=== PATIENT | female | born 1940 | race American Indian/Alaskan Native ===

== ENCOUNTER 2016-07-02 19:35 | Inpatient (IN) | payer MEDICARE ==
--- NOTE | 2016-07-02 20:34 | Cat Scan Report ---
FINAL REPORT EXAM: CT HEAD/BRAIN WO CON HISTORY: neuro deficits > 6hrs or sx present upon awakening TECHNIQUE: CT head without contrast PRIORS: None. FINDINGS: No acute intra-axial or extra-axial hemorrhage is identified. There is no evidence of midline shift or mass effect. There is generalized prominence of ventricles and sulci consistent with mild generalized atrophy. Hanson-white matter differentiation is intact. No acute parenchymal abnormalities seen. There are patchy and confluent hypodensities within the supratentorial white matter. Bony calvarium is grossly intact. Visualized portions of the mastoids and paranasal sinuses are unremarkable. IMPRESSION: Chronic small vessel white matter ischemic change Mild generalized atrophy
--- NOTE | 2016-07-02 20:41 | Admit Criteria Form ---
Admission Criteria Documentation: STROKE: ISCHEMIC Clinical Indications for Admission to Inpatient Care (Place 'X' for any and all applicable criteria): Admission is indicated for ANY ONE of the following(1)(2)(3)(4): [ X]I. Acute stroke Extended stay beyond goal length of stay may be needed for(1)(2) [ ]a) Major deficit or clinical deterioration [ ]b) Hospital-acquired infection (eg, urinary tract infection, pneumonia) [ ]c) Embolic cause of stroke [ ]d) Venous thromboembolism(9) [ ]e) Seizures [ ]f) Bleeding (eg, cerebral) [ ]g) Increased intracranial pressure [ ]h) Comorbidities [ ]i) Surgical intervention The original [email or web address] content created by [email or web address] has been revised. The portions of the content which have been revised are identified through the use of italic text or in bold, and [facility] has neither reviewed nor approved the modified material. All other unmodified content is copyright [facility]. Please see references footnoted in the original [facility] edition 2016 Admission Criteria Met: Yes
--- NOTE | 2016-07-02 21:07 | Emergency Department Report ---
ED Neuro Deficit HPI - General Chief Complaint: Neuro Symptoms/Deficit Stated Complaint: LEG PAIN.LT SIDE WEAKNESS Time Seen by Provider: 07/02/16 20:11 Source: EMS Mode of arrival: Stretcher Limitations: Altered Mental Status, Physical Limitation - History of Present Illness Initial Comments: 75-year-old female presents to the emergency department via EMS for possible strokelike symptoms. Per report, the family stated that the patient has been having left-sided facial droop intermittently for the past 2 days. Patient has a history of stroke with residual left-sided weakness. Patient is bedbound at baseline. Patient denies symptoms. There are no other complaints. -: Gradual, days(s) (2) Location: left face, dysarthria Presenting Symptoms: Present: Facial Droop/Numbness History of same: Yes Place: home Severity: moderate Improves With: none Worsens With: none On Anticoagulants: No Context: gradual onset Associated Symptoms: denies other symptoms Treatments Prior to Arrival: none - Related Data Home Medications: Home Medications Medication Instructions Recorded Confirmed Last Taken Cyanocobalamin [Vitamin B-12] 1,000 mcg IM QWEEK 04/30/16 07/02/16 04/26/16 Previous Rx's Medication Instructions Recorded Last Taken Type Warfarin Sodium [Coumadin] 3 mg PO QPM #30 tab 03/19/15 04/24/16 Rx Allergies/Adverse Reactions: Allergies Allergy/AdvReac Type Severity Reaction Status Date / Time Penicillins Allergy Swelling Verified 08/15/14 16:55 ED Review of Systems ROS: Stated complaint: LEG PAIN.LT SIDE WEAKNESS Other details as noted in HPI Comment: All other systems reviewed and negative Respiratory: denies: shortness of breath Cardiovascular: denies: chest pain Neurological: as per HPI ED Past Medical Hx - Past Medical History Previous Medical History?: Yes Hx Hypertension: Yes (1996 - no meds) Hx CVA: Yes (resid. L-side hemiplegia) Hx Diabetes: Yes (1996; not taking any meds in years) Hx GERD: Yes Additional medical history: FIBROIDS. OBESITY - Surgical History Past Surgical History?: Yes Hx Appendectomy: Yes (1996) Additional Surgical History: HYSTERECTOMY. D & C - Social History Smoking Status: Never Smoker - Medications Home Medications: Home Medications Medication Instructions Recorded Confirmed Last Taken Type Warfarin Sodium [Coumadin] 3 mg PO QPM #30 tab 03/19/15 07/02/16 04/24/16 Rx Cyanocobalamin [Vitamin B-12] 1,000 mcg IM QWEEK 04/30/16 07/02/16 04/26/16 History ED Neuro Physical Exam - General Limitations: Altered Mental Status, Physical Limitation General appearance: alert, in no apparent distress Suspected Stroke: Yes - Head Head exam: Present: atraumatic, normocephalic - Eye Eye exam: Present: normal appearance, PERRL, EOMI - ENT ENT exam: Present: normal exam, normal orophraynx, mucous membranes moist - Neck Neck exam: Present: normal inspection, full ROM. Absent: tenderness - Respiratory Respiratory exam: Present: normal lung sounds bilaterally. Absent: respiratory distress - Cardiovascular Cardiovascular Exam: Present: regular rate, normal rhythm, normal heart sounds - GI/Abdominal GI/Abdominal exam: Present: soft, normal bowel sounds. Absent: distended, tenderness - Extremities Exam Extremities exam: Present: normal inspection. Absent: full ROM (left upper extremity contractures noted), tenderness - Back Exam Back exam: Present: normal inspection, full ROM. Absent: tenderness - Neurological Exam Neurological exam: Present: alert, oriented X3, motor sensory deficit (5/5 strength to right upper and lower extremities. 4/5 strength left upper extremity. 1/5 strength left lower extremity.) - NIHSS Assessment Interval: Baseline 1a. Level of Consciousness: alert 1b. LOC Questions: answers correctly 1c. LOC Commands: performs tasks correctly 2. Best Gaze: partial gaze palsy 3. Visual: no visual loss 4. Facial Palsy: partial paralysis 5b. Motor Arm Right: no drift 5a. Motor Arm Left: no drift 6a. Motor Leg Left: no movement 6b. Motor Leg Right: no drift 7. Limb Ataxia: absent 8. Sensory: normal 9. Best Language: no aphasia 10. Dysarthria: mild/moderate dysarthria 11. Extinction/Inattention: no abnormality Total Score: 8 Stroke Severity: Moderate Stroke - Skin Skin exam: Present: warm, dry, intact ED Course Vital Signs 07/02/16 07/02/16 19:42 19:45 Temperature 98.3 F Pulse Rate 95 H 89 Respiratory 18 22 Rate Blood Pressure 142/80 Blood Pressure 170/104 [Right] O2 Sat by Pulse 98 97 Oximetry - Lab Data Result diagrams: 07/02/16 20:46 07/02/16 20:46 Lab Results 07/02/16 07/02/16 07/02/16 Range/Units 20:01 20:46 20:46 WBC 9.0 (4.5-11.0) K/mm3 RBC 4.43 (3.65-5.03) M/mm3 Hgb 11.9 (10.1-14.3) gm/dl Hct 37.0 (30.3-42.9) % MCV 84 (79-97) fl MCH 27 L (28-32) pg MCHC 32 (30-34) % RDW 15.8 H (13.2-15.2) % Plt Count 865 H (140-440) K/mm3 Lymph % (Auto) Lead Electrical Controls Engineer [place] % (Auto) Lead Electrical Controls Engineer Eos % (Auto) Lead Electrical Controls Engineer Baso % (Auto) Lead Electrical Controls Engineer Lymph # Lead Electrical Controls Engineer [place] # Lead Electrical Controls Engineer Eos # Lead Electrical Controls Engineer Baso # Lead Electrical Controls Engineer Seg Neutrophils % Lead Electrical Controls Engineer Seg Neutrophils # Lead Electrical Controls Engineer PT INR APTT Sodium (137-145) mmol/L Potassium (3.6-5.0) mmol/L Chloride (98-107) mmol/L Carbon Dioxide (22-30) mmol/L Anion Gap mmol/L BUN (7-17) mg/dL Creatinine (0.7-1.2) mg/dL Estimated GFR ml/min BUN/Creatinine Ratio % Glucose (65-100) mg/dL POC Glucose 93 (70-105) Calcium (8.4-10.2) mg/dL Troponin T < 0.010 (0.00-0.029) ng/mL 07/02/16 07/02/16 Range/Units 20:46 20:46 WBC (4.5-11.0) K/mm3 RBC (3.65-5.03) M/mm3 Hgb (10.1-14.3) gm/dl Hct (30.3-42.9) % MCV (79-97) fl MCH (28-32) pg MCHC (30-34) % RDW (13.2-15.2) % Plt Count (140-440) K/mm3 Lymph % (Auto) [place] % (Auto) Eos % (Auto) Baso % (Auto) Lymph # [place] # Eos # Baso # Seg Neutrophils % Seg Neutrophils # PT TNR INR TNR APTT TNR Sodium 135 L (137-145) mmol/L Potassium 4.4 (3.6-5.0) mmol/L Chloride 99.6 (98-107) mmol/L Carbon Dioxide 18 L (22-30) mmol/L Anion Gap 22 mmol/L BUN 13 (7-17) mg/dL Creatinine 1.1 (0.7-1.2) mg/dL Estimated GFR 59 ml/min BUN/Creatinine Ratio 11.81 % Glucose 83 (65-100) mg/dL POC Glucose (70-105) Calcium 8.8 (8.4-10.2) mg/dL Troponin T (0.00-0.029) ng/mL - EKG Data -: EKG Interpreted by Oh EKG shows normal: sinus rhythm, axis, intervals, QRS complexes, ST-T waves Rate: normal When compared to previous EKG there are: no significant change Interpretation: unchanged when compared t (03/07/2015) - Radiology Data Radiology results: report reviewed CT of the head shows small vessel white matter changes. There is no acute intracranial abnormality. - Medical Decision Making Lab and imaging results reviewed and discussed with the family at bedside. Patient has a history of stroke, but per the family the left facial droop is new. Patient is not a TPA candidate due to the presence of symptoms for approximately 2 days. Patient will be admitted by the hospitalist for further management. - Differential Diagnosis stroke, electrolyte abnormality - Thrombolytic Inclusion/Exclusion Thrombolytic Exclusion Criteria: Symptom Onset > 3 Hours Critical care attestation.: If time is entered above; I have spent that time in minutes in the direct care of this critically ill patient, excluding procedure time. ED Disposition Clinical Impression: Stroke Qualifiers: CVA mechanism: other Qualified Code(s): I63.8 - Other cerebral infarction Disposition: OP ADMITTED IP TO THIS HOSP Is pt being admited?: Yes Condition: Stable Time of Disposition: 22:41
[2016-07-02 21:56] LABS: BUN/Creatinine Ratio 11.81; Calcium 8.8 mg/dL (8.4-10.2)
[2016-07-02 21:57] LABS: Chloride 99.6 mmol/L (98-107); Potassium 4.4 mmol/L (3.6-5.0)
[2016-07-02 22:03] LABS: Hemoglobin 11.9 gm/dl (10.1-14.3); Mean Corpuscular HGB Conc 32 % (30-34); Mean Corpuscular Hemoglobin 27 pg (28-32); Mean Corpuscular Volume 84 fl (79-97); Platelet Count 865 K/mm3 (140-440); Red Blood Count 4.43 M/mm3 (3.65-5.03); Red Cell Distribution Width 15.8 % (13.2-15.2)
[2016-07-02 22:04] LABS: INR TNR (0.87-1.13); Partial Thromboplastin Time TNR Sec. (24.2-36.6)
--- NOTE | 2016-07-02 23:29 | History and Physical Report ---
History of Present Illness Date of examination: 07/02/16 Date of admission: 07/02/16 Chief complaint: left facial droop and lue weakness History of present illness: 75-year-old female with past meb=dical history of morbid obesity, BMI 44, peripheral artery disease status post left leg stent, chronic lower extremity lymphedema and LE DVT s/p IVC filter presents with left-sided facial droop and left upper extremity weakness. Patient's sister at bedside reports that her symptoms began on Saturday afternoon approximately 2 PM. She also reports the patient's had no history of CVA in the past. EMS was called to the house on Saturday but patient refused hospitalization. Patient's symptoms progressively worsen with lower extremity weakness and difficulty with mobility today which prompted the visit to the emergency room. Patient normally needs assistance with walking because of chronic lymphedema and lower extremity ulcers but no history of CVA. Patient denies any chest pain or shortness of breath. Patient reportedly had a headache on Saturday but no headache today. Patient denies any visual disturbances. No cough or cold symptoms. Past History Past Medical History: DVT, hypertension, other (lymphedema, LE ulcers) Past Surgical History: Other (LE stent, IVC filter palcement) Social history: no significant social history Family history: no significant family history Medications and Allergies Allergies Allergy/AdvReac Type Severity Reaction Status Date / Time Penicillins Allergy Swelling Verified 08/15/14 16:55 Home Medications Medication Instructions Recorded Confirmed Last Taken Type Warfarin Sodium [Coumadin] 3 mg PO QPM #30 tab 03/19/15 07/02/16 04/24/16 Rx Cyanocobalamin [Vitamin B-12] 1,000 mcg IM QWEEK 04/30/16 07/02/16 04/26/16 History Review of Systems All systems: negative Exam - Constitutional Vitals: Temp Pulse Resp BP Pulse Ox 98.3 F 93 H 18 138/70 97 07/02/16 19:45 07/02/16 21:45 07/02/16 21:45 07/02/16 21:45 07/02/16 21:45 General appearance: Present: no acute distress, well-nourished - EENT Eyes: Present: PERRL ENT: hearing intact, clear oral mucosa - Neck Neck: Present: supple, normal ROM - Respiratory Respiratory effort: normal Respiratory: bilateral: CTA - Cardiovascular Heart Sounds: Present: S1 & S2. Absent: rub, click - Extremities Extremities: pulses symmetrical Extremity abnormal: edema (LLE edema, ulcer), black Peripheral Pulses: within normal limits - Abdominal General gastrointestinal: Present: soft, non-tender, non-distended, normal bowel sounds Female genitourinary: Present: normal - Integumentary Integumentary: Present: clear, warm, dry - Musculoskeletal Musculoskeletal: gait normal, strength equal bilaterally - Psychiatric Psychiatric: appropriate mood/affect, intact judgment & insight - Neurologic Neurologic: CNII-XII intact, moves all extremities Results - Labs CBC & Chem 7: 07/02/16 20:46 07/02/16 20:46 Labs: Laboratory Last Values WBC 9.0 K/mm3 (4.5-11.0) 07/02/16 20:46 RBC 4.43 M/mm3 (3.65-5.03) 07/02/16 20:46 Hgb 11.9 gm/dl (10.1-14.3) 07/02/16 20:46 Hct 37.0 % (30.3-42.9) 07/02/16 20:46 MCV 84 fl (79-97) 07/02/16 20:46 MCH 27 pg (28-32) L 07/02/16 20:46 MCHC 32 % (30-34) 07/02/16 20:46 RDW 15.8 % (13.2-15.2) H 07/02/16 20:46 Plt Count 865 K/mm3 (140-440) H 07/02/16 20:46 Lymph % (Auto) Chief Operator 07/02/16 20:46 [place] % (Auto) Chief Operator 07/02/16 20:46 Eos % (Auto) Chief Operator 07/02/16 20:46 Baso % (Auto) Chief Operator 07/02/16 20:46 Lymph # Chief Operator 07/02/16 20:46 [place] # Chief Operator 07/02/16 20:46 Eos # Chief Operator 07/02/16 20:46 Baso # Chief Operator 07/02/16 20:46 Seg Neutrophils % Chief Operator 07/02/16 20:46 Seg Neutrophils # Chief Operator 07/02/16 20:46 PT TNR 07/02/16 20:46 INR TNR 07/02/16 20:46 APTT TNR 07/02/16 20:46 Sodium 135 mmol/L (137-145) L 07/02/16 20:46 Potassium 4.4 mmol/L (3.6-5.0) 07/02/16 20:46 Chloride 99.6 mmol/L (98-107) 07/02/16 20:46 Carbon Dioxide 18 mmol/L (22-30) L 07/02/16 20:46 Anion Gap 22 mmol/L 07/02/16 20:46 BUN 13 mg/dL (7-17) 07/02/16 20:46 Creatinine 1.1 mg/dL (0.7-1.2) 07/02/16 20:46 Estimated GFR 59 ml/min 07/02/16 20:46 BUN/Creatinine Ratio 11.81 % 07/02/16 20:46 Glucose 83 mg/dL (65-100) 07/02/16 20:46 POC Glucose 93 (70-105) 07/02/16 20:01 Calcium 8.8 mg/dL (8.4-10.2) 07/02/16 20:46 Troponin T < 0.010 ng/mL (0.00-0.029) 07/02/16 20:46 Assessment and Plan Assessment and plan: 1. Acute CVA. CT scan shows chronic small vessel disease no acute process. We will obtain neurology consultation. ST/PT/OT eval. Patient is to schedule for MRI/MRA and echocardiogram. 2. History of DVT. Continue anticoagulation. 3. Peripheral vascular disease. Continue supportive care. 4. Lower extremity ulcer/wounds. Wound care consult.
[2016-07-02] MEDS ORDERED: ZOFRAN IV PRN (23:39)
[2016-07-02] MEDS ORDERED: DULCOLAX PR PRN (23:39)
[2016-07-02] MEDS ORDERED: MILK OF MAGNESIA PO PRN (23:39)
[2016-07-02] MEDS ORDERED: REGLAN PO PRN (23:39)
[2016-07-02] MEDS ORDERED: SODIUM CHLORIDE FLUSH SYRINGE 10 ML IV PRN (23:39)
[2016-07-02] MEDS ORDERED: PHENERGAN PR PRN (23:39)
[2016-07-03] MEDS: TYLENOL PO PRN ×2 (03:06→11:49)
[2016-07-03 11:42] LABS: Partial Thromboplastin Time 33.7 Sec. (24.2-36.6)
--- NOTE | 2016-07-03 17:00 | Echocardiography Report ---
Transthoracic Echocardiogram Indication: CVA BP: 156/79 HR: 83 Conclusions *Global left ventricular systolic function is normal. *The estimated ejection fraction is 55-60%. *There is no evidence of mitral regurgitation. *The tricuspid valve is not well visualized. *There is no pericardial effusion. Findings Procedure Info: The study quality is fair. Left Ventricle: The left ventricular chamber size is normal. Global left ventricular systolic function is normal. The estimated ejection fraction is 55-60%. Left Atrium: The left atrial chamber size is normal. Right Ventricle: The right ventricular cavity size is normal. The right ventricular global systolic function is normal. Right Atrium: The right atrial cavity size is normal. Aortic Valve: The aortic valve is not well visualized. There is no evidence of aortic regurgitation. There is no evidence of aortic stenosis. Mitral Valve: There is no evidence of mitral regurgitation. There is no evidence of mitral stenosis. Tricuspid Valve: The tricuspid valve is not well visualized. There is no evidence of tricuspid valve regurgitation. There is no tricuspid stenosis. Pulmonic Valve: The pulmonic valve is not well visualized. There is no evidence of pulmonic regurgitation. There is no pulmonic stenosis. Pericardium: There is no pericardial effusion. There is a small pleural effusion. Venous: The inferior vena cava is not visualized. Measurements Chambers 2D Name Value Normal Range IVSd (2D) 0.81 cm (0.6 - 1.1) LVPWd 1.1 cm - LVPWd (2D) 1.14 cm (0.6 - 1.1) IVS:LVPW ratio (2D) 0.71 ratio - LVIDd 3.7 cm - LVIDs 2.6 cm - LVIDd (2D) 3.73 cm (3.7 - 5.6) LVIDs (2D) 2.63 cm (2 - 3.8) LV FS (Teichholz) (2D) 29.5 % - LV FS (cube) (2D) 29.5 % - LV EF (2D) 55 % - EF Teichholz (2D) 57.3 % - LA dimension 2.7 cm - Ao root diameter (2D) 2.5 cm (2 - 3.7) LA dimension (AP) 2D 2.7 cm (1.9 - 4) LA:Ao ratio (2D) 1.08 ratio - Volumes/Mass Name Value Normal Range LA ESV SP 4CH (MOD) 24 ml - LV EDV SP 4CH (MOD) 65 ml - LV ESV SP 4CH (MOD) 19 ml - EF SP 4CH (MOD) 71 % - Diastolic/Systolic Function Name Value Normal Range MV E-wave Vmax 0.64 m/sec - MV A-wave Vmax 1.07 m/sec - MV E:A ratio 0.6 ratio - LV septal e' Vmax 0.05 m/sec - LV lateral e' Vmax 0.1 m/sec - LV E:e' septal ratio 13.5 ratio - LV E:e' lateral ratio 6.6 ratio - Aortic Valve Name Value Normal Range AV VTI 26.3 cm - AV mean gradient 4 mmHg - LVOT diameter 1.9 cm - LVOT VTI 17.6 cm - LVOT mean gradient 2 mmHg - SV LVOT 50 ml - MARLA (continuity VTI) 1.9 cm2 - Mitral Valve Name Value Normal Range MV PHT 51 msec - MVA (PHT) 4.31 cm2 - Pulmonic Valve/Qp:Qs Name Value Normal Range PV acceleration time 81 msec -
[2016-07-03] MEDS: COUMADIN PO SCH (17:59)
[2016-07-03] MEDS ORDERED: NON-FORMULARY (Warfarin Sodium [Coumadin] 3 MG) PO SCH (18:00)
[2016-07-03] MEDS ORDERED: TYLENOL PR PRN (18:11)
--- NOTE | 2016-07-03 19:06 | Progress Note ---
Assessment and Plan Assessment and plan: -- Acute CVA. Neuro workup is in progress, continue physical therapy occupational therapies patient therapy Follow MRI/MRA, rehabilitation evaluation Continue aspirin and statin -- History of DVT. On Coumadin, therapeutic INR -- Peripheral vascular disease. Continue current management -- Lower extremity ulcer/wounds. Chronic lymphedema, Wound and supportive care --DVT prophylaxis patient is already on Coumadin therapeutic INR --CODE STATUS full code Closely monitor the patient and adjust the management as needed Possible inpatient versus subacute rehabilitation placement if needed At the time of discharge History Interval history: Patient seen and evaluated medical records reviewed No new events reported by the nursing staff Admitted with acute CVA, neuro workup is in progress Patient has no new complaints Vital signs reviewed Hospitalist Physical - Constitutional Vitals: Temp Pulse Resp BP Pulse Ox 98.2 F 92 H 20 141/65 96 07/03/16 12:47 07/03/16 12:47 07/03/16 12:47 07/03/16 12:47 07/03/16 12:47 General appearance: Present: no acute distress, well-nourished - EENT Eyes: Present: PERRL, EOM intact - Neck Neck: Present: supple, normal ROM - Respiratory Respiratory effort: normal Respiratory: bilateral: diminished, negative: rales, rhonchi, wheezing - Cardiovascular Rhythm: regular Heart Sounds: Present: S1 & S2 - Extremities Extremities: no ischemia, pulses intact, pulses symmetrical Peripheral Pulses: within normal limits - Abdominal General gastrointestinal: soft, non-tender, non-distended, normal bowel sounds - Integumentary Integumentary: Present: clear, warm - Psychiatric Psychiatric: appropriate mood/affect, cooperative - Neurologic Neurologic: moves all extremities Results - Labs CBC & Chem 7: 07/02/16 20:46 07/02/16 20:46 Labs: Laboratory Last Values WBC 9.0 K/mm3 (4.5-11.0) 07/02/16 20:46 RBC 4.43 M/mm3 (3.65-5.03) 07/02/16 20:46 Hgb 11.9 gm/dl (10.1-14.3) 07/02/16 20:46 Hct 37.0 % (30.3-42.9) 07/02/16 20:46 MCV 84 fl (79-97) 07/02/16 20:46 MCH 27 pg (28-32) L 07/02/16 20:46 MCHC 32 % (30-34) 07/02/16 20:46 RDW 15.8 % (13.2-15.2) H 07/02/16 20:46 Plt Count 865 K/mm3 (140-440) H 07/02/16 20:46 Lymph % (Auto) Credit Report Checker 07/02/16 20:46 [place] % (Auto) Credit Report Checker 07/02/16 20:46 Eos % (Auto) Credit Report Checker 07/02/16 20:46 Baso % (Auto) Credit Report Checker 07/02/16 20:46 Lymph # Credit Report Checker 07/02/16 20:46 [place] # Credit Report Checker 07/02/16 20:46 Eos # Credit Report Checker 07/02/16 20:46 Baso # Credit Report Checker 07/02/16 20:46 Seg Neutrophils % Credit Report Checker 07/02/16 20:46 Seg Neutrophils # Credit Report Checker 07/02/16 20:46 PT 22.7 Sec. (12.2-14.9) H 07/03/16 11:19 INR 2.00 (0.87-1.13) H 07/03/16 11:19 APTT 33.7 Sec. (24.2-36.6) 07/03/16 11:19 Thrombin Time 18.8 Sec. (15.1-19.6) 07/03/16 11:19 Sodium 135 mmol/L (137-145) L 07/02/16 20:46 Potassium 4.4 mmol/L (3.6-5.0) 07/02/16 20:46 Chloride 99.6 mmol/L (98-107) 07/02/16 20:46 Carbon Dioxide 18 mmol/L (22-30) L 07/02/16 20:46 Anion Gap 22 mmol/L 07/02/16 20:46 BUN 13 mg/dL (7-17) 07/02/16 20:46 Creatinine 1.1 mg/dL (0.7-1.2) 07/02/16 20:46 Estimated GFR 59 ml/min 07/02/16 20:46 BUN/Creatinine Ratio 11.81 % 07/02/16 20:46 Glucose 83 mg/dL (65-100) 07/02/16 20:46 POC Glucose 93 (70-105) 07/02/16 20:01 Calcium 8.8 mg/dL (8.4-10.2) 07/02/16 20:46 Troponin T < 0.010 ng/mL (0.00-0.029) 07/02/16 20:46 Triglycerides 122 mg/dL (2-149) 07/03/16 06:33 Cholesterol 168 mg/dL (50-199) 07/03/16 06:33 LDL Cholesterol Direct 104 mg/dL (50-130) 07/03/16 06:33 HDL Cholesterol 40 mg/dL (40-59) 07/03/16 06:33 Cholesterol/HDL Ratio 4.20 % 07/03/16 06:33
[2016-07-03] MEDS: ZOCOR PO SCH (21:42)
[2016-07-04 07:06] LABS: INR 2.1 (0.87-1.13)
--- NOTE | 2016-07-04 09:47 | Progress Note ---
Assessment and Plan Assessment and plan: -- Acute CVA. Neuro workup is in progress, continue physical therapy occupational therapies patient therapy Follow MRI/MRA, rehabilitation evaluation, diet per swallow evaluation Continue aspirin and statin -- History of DVT. On Coumadin, therapeutic INR -- Peripheral vascular disease. Continue current management -- Lower extremity ulcer/wounds. Chronic lymphedema, Wound and supportive care Patient follows with outpatient wound care --DVT prophylaxis patient is already on Coumadin therapeutic INR --CODE STATUS full code Closely monitor the patient and adjust the management as needed Possible inpatient versus subacute rehabilitation placement if needed At the time of discharge History Interval history: Patient seen and evaluated medical records reviewed No new events reported by the nursing staff Patient is evaluated speech and swallow, recommended diet Alert and awake responding to simple questions Awaiting MRI Hospitalist Physical - Constitutional Vitals: Temp Pulse Resp BP Pulse Ox 98.1 F 88 18 149/65 98 07/04/16 08:00 07/04/16 08:00 07/04/16 08:00 07/04/16 08:00 07/04/16 08:00 General appearance: Present: no acute distress, well-nourished, obese - EENT Eyes: Present: PERRL, EOM intact - Neck Neck: Present: supple, normal ROM - Respiratory Respiratory effort: normal Respiratory: bilateral: diminished, negative: rales, rhonchi, wheezing - Cardiovascular Rhythm: regular Heart Sounds: Present: S1 & S2 - Extremities Extremities: abnormal (chronic lymphedema/chronic venous ulcers/ hyperpigmentation) - Abdominal General gastrointestinal: soft, non-tender, non-distended, normal bowel sounds, other (morbidly obese) - Integumentary Integumentary: Present: clear, warm - Psychiatric Psychiatric: appropriate mood/affect, cooperative - Neurologic Neurologic: other (left-sided hemiparesis) Results - Labs CBC & Chem 7: 07/02/16 20:46 07/02/16 20:46 Labs: Laboratory Last Values WBC 9.0 K/mm3 (4.5-11.0) 07/02/16 20:46 RBC 4.43 M/mm3 (3.65-5.03) 07/02/16 20:46 Hgb 11.9 gm/dl (10.1-14.3) 07/02/16 20:46 Hct 37.0 % (30.3-42.9) 07/02/16 20:46 MCV 84 fl (79-97) 07/02/16 20:46 MCH 27 pg (28-32) L 07/02/16 20:46 MCHC 32 % (30-34) 07/02/16 20:46 RDW 15.8 % (13.2-15.2) H 07/02/16 20:46 Plt Count 865 K/mm3 (140-440) H 07/02/16 20:46 Lymph % (Auto) [place] 07/02/16 20:46 [place] % (Auto) [employer] 07/02/16 20:46 Eos % (Auto) [place] [place] 07/02/16 20:46 Baso % (Auto) [place] [place] 07/02/16 20:46 Lymph # [place] [place] 07/02/16 20:46 [place] # [employer] 07/02/16 20:46 Eos # [place] [place] 07/02/16 20:46 Baso # [place] [employer] 07/02/16 20:46 Seg Neutrophils % [place] 07/02/16 20:46 Seg Neutrophils # [place] 07/02/16 20:46 PT 23.6 Sec. (12.2-14.9) H 07/04/16 06:34 INR 2.10 (0.87-1.13) H 07/04/16 06:34 APTT 33.7 Sec. (24.2-36.6) 07/03/16 11:19 Thrombin Time 18.8 Sec. (15.1-19.6) 07/03/16 11:19 Sodium 135 mmol/L (137-145) L 07/02/16 20:46 Potassium 4.4 mmol/L (3.6-5.0) 07/02/16 20:46 Chloride 99.6 mmol/L (98-107) 07/02/16 20:46 Carbon Dioxide 18 mmol/L (22-30) L 07/02/16 20:46 Anion Gap 22 mmol/L 07/02/16 20:46 BUN 13 mg/dL (7-17) 07/02/16 20:46 Creatinine 1.1 mg/dL (0.7-1.2) 07/02/16 20:46 Estimated GFR 59 ml/min 07/02/16 20:46 BUN/Creatinine Ratio 11.81 % 07/02/16 20:46 Glucose 83 mg/dL (65-100) 07/02/16 20:46 POC Glucose 93 (70-105) 07/02/16 20:01 Calcium 8.8 mg/dL (8.4-10.2) 07/02/16 20:46 Troponin T < 0.010 ng/mL (0.00-0.029) 07/02/16 20:46 Triglycerides 122 mg/dL (2-149) 07/03/16 06:33 Cholesterol 168 mg/dL (50-199) 07/03/16 06:33 LDL Cholesterol Direct 104 mg/dL (50-130) 07/03/16 06:33 HDL Cholesterol 40 mg/dL (40-59) 07/03/16 06:33 Cholesterol/HDL Ratio 4.20 % 07/03/16 06:33
[2016-07-04] MEDS ORDERED: ASPIRIN PR ONE (10:04)
[2016-07-04] MEDS: BABY ASPIRIN PO SCH ×2 (11:50→11:55)
[2016-07-04] MEDS: COUMADIN PO SCH (18:00)
[2016-07-04] MEDS: ZOCOR PO SCH (22:29)
[2016-07-05 07:00] LABS: Basophils % (Auto) 0.3 % (0.0-1.8); Eosinophils % (Auto) 2.7 % (0.0-4.3); Hematocrit 32.8 % (30.3-42.9); Hemoglobin 10.9 gm/dl (10.1-14.3); Mean Corpuscular HGB Conc 33 % (30-34); Mean Corpuscular Hemoglobin 27 pg (28-32); Mean Corpuscular Volume 81 fl (79-97); Platelet Count 829 K/mm3 (140-440); Red Blood Count 4.07 M/mm3 (3.65-5.03); Red Cell Distribution Width 15.7 % (13.2-15.2); White Blood Count 7.9 K/mm3 (4.5-11.0)
[2016-07-05 07:12] LABS: INR 2.07 (0.87-1.13)
[2016-07-05 07:19] LABS: BUN/Creatinine Ratio 16.25; Blood Urea Nitrogen 13 mg/dL (7-17); Calcium 8.5 mg/dL (8.4-10.2); Carbon Dioxide 19 mmol/L (22-30); Chloride 100.7 mmol/L (98-107); Glucose 73 mg/dL (65-100); Potassium 4.1 mmol/L (3.6-5.0); Sodium 137 mmol/L (137-145)
[2016-07-05 07:23] LABS: Anion Gap 21 mmol/L
[2016-07-05] MEDS: BABY ASPIRIN PO SCH (09:43)
--- NOTE | 2016-07-05 15:59 | Progress Note ---
Assessment and Plan Assessment and plan: -- Acute CVA. Follow MRI Physical therapy occupational therapy rehabilitation Tolerating diet, continue antiplatelets and statins -- History of DVT. On Coumadin, therapeutic INR -- Peripheral vascular disease. Continue current management -- Lower extremity ulcer/wounds. Chronic lymphedema, Wound and supportive care Patient follows with outpatient wound care --DVT prophylaxis patient is already on Coumadin therapeutic INR --CODE STATUS full code DC planning. Case management Possible discharge back to [facility] facility when stable Patient's condition treatment plan discussed in detail with the patient answered all her questions History Interval history: Patient feels slightly better today Patient will have MRI study today, complains of generalized weakness Alert awake oriented 3 Vital signs are stable Hospitalist Physical - Constitutional Vitals: Temp Pulse Resp BP Pulse Ox 97.9 F 82 24 137/62 96 07/05/16 14:06 07/05/16 14:06 07/05/16 14:06 07/05/16 14:06 07/05/16 14:06 General appearance: Present: no acute distress, well-nourished, obese - EENT Eyes: Present: PERRL, EOM intact - Neck Neck: Present: supple, normal ROM - Respiratory Respiratory effort: normal Respiratory: bilateral: diminished, negative: rales, rhonchi, wheezing - Cardiovascular Rhythm: regular Heart Sounds: Present: S1 & S2 - Extremities Extremities: no ischemia, pulses intact, pulses symmetrical Peripheral Pulses: within normal limits - Abdominal General gastrointestinal: soft, non-tender, non-distended, normal bowel sounds - Integumentary Integumentary: Present: clear, warm - Psychiatric Psychiatric: appropriate mood/affect, cooperative - Neurologic Neurologic: CNII-XII intact, moves all extremities Results - Labs CBC & Chem 7: 07/05/16 06:41 07/05/16 06:41 Labs: Laboratory Last Values WBC 7.9 K/mm3 (4.5-11.0) 07/05/16 06:41 RBC 4.07 M/mm3 (3.65-5.03) 07/05/16 06:41 Hgb 10.9 gm/dl (10.1-14.3) 07/05/16 06:41 Hct 32.8 % (30.3-42.9) 07/05/16 06:41 MCV 81 fl (79-97) D 07/05/16 06:41 MCH 27 pg (28-32) L 07/05/16 06:41 MCHC 33 % (30-34) 07/05/16 06:41 RDW 15.7 % (13.2-15.2) H 07/05/16 06:41 Plt Count 829 K/mm3 (140-440) H 07/05/16 06:41 Lymph % (Auto) 24.4 % (13.4-35.0) 07/05/16 06:41 [place] % (Auto) 12.5 % (0.0-7.3) H 07/05/16 06:41 Eos % (Auto) 2.7 % (0.0-4.3) 07/05/16 06:41 Baso % (Auto) 0.3 % (0.0-1.8) 07/05/16 06:41 Lymph # 1.9 K/mm3 (1.2-5.4) 07/05/16 06:41 [place] # 1.0 K/mm3 (0.0-0.8) H 07/05/16 06:41 Eos # 0.2 K/mm3 (0.0-0.4) 07/05/16 06:41 Baso # 0.0 K/mm3 (0.0-0.1) 07/05/16 06:41 Seg Neutrophils % 60.1 % (40.0-70.0) 07/05/16 06:41 Seg Neutrophils # 4.8 K/mm3 (1.8-7.7) 07/05/16 06:41 PT 23.3 Sec. (12.2-14.9) H 07/05/16 06:41 INR 2.07 (0.87-1.13) H 07/05/16 06:41 APTT 33.7 Sec. (24.2-36.6) 07/03/16 11:19 Thrombin Time 18.8 Sec. (15.1-19.6) 07/03/16 11:19 Sodium 137 mmol/L (137-145) 07/05/16 06:41 Potassium 4.1 mmol/L (3.6-5.0) 07/05/16 06:41 Chloride 100.7 mmol/L (98-107) 07/05/16 06:41 Carbon Dioxide 19 mmol/L (22-30) L 07/05/16 06:41 Anion Gap 21 mmol/L 07/05/16 06:41 BUN 13 mg/dL (7-17) 07/05/16 06:41 Creatinine 0.8 mg/dL (0.7-1.2) 07/05/16 06:41 Estimated GFR > 60 ml/min 07/05/16 06:41 BUN/Creatinine Ratio 16.25 % 07/05/16 06:41 Glucose 73 mg/dL (65-100) 07/05/16 06:41 POC Glucose 93 (70-105) 07/02/16 20:01 Calcium 8.5 mg/dL (8.4-10.2) 07/05/16 06:41 Troponin T < 0.010 ng/mL (0.00-0.029) 07/02/16 20:46 Triglycerides 122 mg/dL (2-149) 07/03/16 06:33 Cholesterol 168 mg/dL (50-199) 07/03/16 06:33 LDL Cholesterol Direct 104 mg/dL (50-130) 07/03/16 06:33 HDL Cholesterol 40 mg/dL (40-59) 07/03/16 06:33 Cholesterol/HDL Ratio 4.20 % 07/03/16 06:33
[2016-07-05] MEDS: COUMADIN PO SCH (16:41)
--- NOTE | 2016-07-05 16:43 | Magnetic Resonance Report ---
MRI of the brain without contrast. Procedure: Routine brain protocol without contrast. Findings: The examination is severely limited by motion artifact on most all of the sequences. There is limited diagnostic information available on this study. There is however an area of restricted diffusion in the right posterior frontal and anterior parietal lobe with associated edema in this region. There is no definite mass effect. There are scattered areas of hyperintense T2 and flair signal in the periventricular white matter bilaterally. The ventricles and cortical sulci are prominent. No definite masses or extra-axial collections are seen. The posterior fossa is unremarkable. Impression: Severely limited study demonstrating an acute infarct involving the right posterior frontal and anterior parietal lobes.
[2016-07-05] MEDS: ZOCOR PO SCH (23:04)
[2016-07-06 07:54] LABS: INR 2.21 (0.87-1.13)
[2016-07-06] MEDS: BABY ASPIRIN PO SCH (10:30)
--- NOTE | 2016-07-06 11:09 | Discharge Summary ---
Providers - Providers Date of Admission: 07/02/16 23:41 Attending physician: ODLORES KNIGHT 07/03/16 06:56 Consult to Wound/ET Nurse [CONS] Routine Reason For Exam: wound eval 07/03/16 15:07 Consult to Case Management [CONS] Routine Services Needed at Discharge: Other Notified:: HAIR Phone number called:: [phone] Was contact made?: Yes If yes, spoke with:: HAIR Time called:: 15:08 Additional Physician Instructions: SN[facility]: [facility] Primary care physician: CASINO HOST Hospitalization Reason for admission: left facial droop and left-sided weakness/acute CVA Condition: Stable Pertinent studies: CT head without contrast; chronic small vessel white matter ischemic change, generalized atrophy MRI of the brain; acute infarct involving the right posterior frontal and anterior parietal lobes/right MCA territory acute infarctions the largest focus in the right coronary ADA to posterior frontal white matter, frontal and ethmoid sinusitis MRA brain; high-grade stenosis of the right MCA OR segment hypoplastic aplastic right vertebral artery Echocardiogram; left ventricular systolic function is normal ejection fraction 55-60% Hospital course: 75-year-old morbidly obese female patient with significant past medical history of morbid obesity peripheral arterial disease status post left leg stent chronic lower extremity lymphedema with chronic ulcers of lower extremity DVT status post IVC filter was admitted through emergency room with left-sided facial droop and left upper extremity weakness, Patient was noted candidate for TPA was admitted to the hospital and symptomatically managed underwent extensive CVA workup as mentioned above Patient is in physical therapy occupational therapy member services representative have evaluated the patient and set up [facility] facility placement Today patient is comfortable in bed alert and awake, still complains of left- sided weakness INR is therapeutic, [id number] evaluation physical examination done by me prior to discharge is unremarkable as detailed in the physical examination Final diagnosis; 1. Acute CVA. Left-sided hemiparesis Patient will continue aspirin and statin, physical therapy occupational therapy and rehabilitation 2. History of DVT; on Coumadin, therapeutic INR 3. Peripheral vascular disease continue current management 4. Chronic lymphedema/chronic venous ulcers continue wound care Disposition: STILL A PATIENT Time spent for discharge: 35 min Core Measure Documentation - Palliative Care Palliative Care/ Comfort Measures: Not Applicable - Core Measures Any of the following diagnoses?: stroke - Stroke Discharge Requirements Statin for LDL = or >70 mg/dl on DC: Yes Anticoag for atrial fib/atrial flutter: Not Applicable Antithrombotic for ischemic stroke: Yes Exam - Constitutional Vitals: Temp Pulse Resp BP Pulse Ox 98.5 F 83 20 141/64 95 07/06/16 04:00 07/06/16 04:00 07/06/16 04:00 07/06/16 04:00 07/06/16 04:00 General appearance: Present: no acute distress, well-nourished - EENT Eyes: Present: PERRL, EOM intact - Neck Neck: Present: supple, normal ROM - Respiratory Respiratory effort: normal Respiratory: bilateral: diminished, negative: rales, rhonchi, wheezing - Cardiovascular Rhythm: regular Heart Sounds: Present: S1 & S2 - Extremities Extremities: no ischemia, pulses intact, pulses symmetrical Peripheral Pulses: within normal limits - Abdominal General gastrointestinal: Present: soft, non-tender, non-distended, normal bowel sounds - Integumentary Integumentary: Present: clear, warm - Musculoskeletal Musculoskeletal: left sided weakness - Psychiatric Psychiatric: appropriate mood/affect, cooperative - Neurologic Neurologic: other (CVA with left-sided hemiparesis) Plan Diet: advance as tolerated, other (mechanical soft diet) Wound: per wound nurse instructions Special Instructions: physical therapy, occupational therapy Additional Instructions: Frequent INR checks, target level 2-3. If any bleeding noted hold Coumadin and contact Deb Physical therapy occupational therapy Follow up with: PRIMARY CAREMD [Primary Care Provider] - 3-5 Days MODE SHELBY MD [Staff Physician] - 7 Days Forms: Warfarin Discharge Instruction Prescriptions: Aspirin [Aspirin BABY CHEW TAB] 81 mg PO QDAY #30 tab.chew Simvastatin [Zocor TAB] 20 mg PO QHS #30 tablet Warfarin Sodium [Coumadin] 3 mg PO QPM #30 tab
--- NOTE | 2016-07-06 15:00 | Magnetic Resonance Report ---
MRI BRAIN WITHOUT CONTRAST INDICATION: Stroke. COMPARISON: MRI attempted yesterday as also 07/02/2016 CT. FINDINGS: Noncontrast multiplanar and multisequence MRI of the brain demonstrates multifocal right MCA territory infarct involving both frontal and parietal lobes with the largest foci aggregated in the right coronary radiata and collectively estimated at approximately 4 x 2.5 cm, axial diffusion series 4, image 26. An approximately 7 mm right frontal deep white matter focus of restricted diffusion also seen, image 24 as also few in the left parietal cortical/subcortical distribution inferiorly as on images 20-23, amongst others. Motion artifact again partly degrades exam. Grossly symmetric, age-appropriate ventricles and sulci however. No acute hemorrhage, mass effect or midline shift. No abnormal extra axial masses or fluid collections. Normal major intracranial vascular flow voids. Grossly normal posterior fossa with preserved basilar cisterns and symmetric seventh and eighth nerve complexes. Nasal septal deviation. Left frontal ethmoid sinusitis/opacification again noted. Clear remainder paranasal sinuses and mastoid air cells. Grossly unremarkable eye globes. Mild cervical spondylosis. Normal midline structures without evidence of Chiari malformation. CONCLUSION: 1. Right MCA territory acute infarctions involving the frontal and parietal lobes with the largest focus in the right lee radiata/posterior frontal white matter, as detailed above. 2. Left frontoethmoid sinusitis. Thank you for the opportunity to participate in this patient's care.
--- NOTE | 2016-07-06 15:02 | Magnetic Resonance Report ---
MRA HEAD WITHOUT CONTRAST INDICATION: Stroke. COMPARISON: None similar. FINDINGS: MRA of the head performed without intravenous contrast and demonstrates no evidence of vascular malformation. High-grade, approximately 80-85% stenosis of the right MCA/M1 segment noted as on axial source series 3, image 77, amongst others. Further distal right MCA and its branches may also demonstrate mild irregularity, possibly stenosis versus spasm. Right vertebral artery may be hypoplastic/aplastic with left vertebral artery predominantly continuing as the basilar artery. Please note that detection of aneurysms less than 5 mm is limited on this exam. CONCLUSION: 1. High-grade stenosis of the right MCA/M1 segment, as described. Further distal right MCA atherosclerotic involvement or spasm may also be present. 2. Hypoplastic/aplastic right vertebral artery. Thank you for the opportunity to participate in this patient's care.
[2016-07-06] MEDS: COUMADIN PO SCH (18:08)
[2016-07-06 18:24] VITALS: BP 166/74
[2016-07-09] MEDS ORDERED: VITAMIN B-12 IM SCH (10:00)
== END 2016-07-06 19:30 | DRG 65 ==
LOC: ED 19:35 → 4A 23:41
PROVIDERS: ADMIT Hospitalist; ATTEND Internal Medicine
DX: I63.9 Cerebral infarction, unspecified (principal); L97.909 Non-pressure chronic ulcer of unspecified part of unspecified lower leg with unspecified severity; I69.354 Hemiplegia and hemiparesis following cerebral infarction affecting left non-dominant side; E66.01 Morbid (severe) obesity due to excess calories; I10 Essential (primary) hypertension; E11.51 Type 2 diabetes mellitus with diabetic peripheral angiopathy without gangrene; Z74.01 Bed confinement status; Z79.01 Long term (current) use of anticoagulants; Z88.0 Allergy status to penicillin; Z90.710 Acquired absence of both cervix and uterus; Z68.31 Body mass index [BMI] 31.0-31.9, adult; Z90.49 Acquired absence of other specified parts of digestive tract; Z98.890 Other specified postprocedural states; Z86.718 Personal history of other venous thrombosis and embolism
CPT/HCPCS: 36415; 70450; 70544; 70551; 80048; 80061; 82962; 84484; 85025; 85610; 85670; 85730; 93005; 93010; 93306; G8978-GP; G8979-GP; G8987-GO; G8988-GO; G8996-GN; G8997-GN